=== PATIENT | male | born 1950 | race Caucasian/White ===

== ENCOUNTER → 2017-08-28 | Outpatient (CLI) | payer MEDICARE ==
[2017-08-28 10:03] LABS: Basophils % (A) 1 %; Eosinophils # (A) 0.1 k/uL (0-0.7); Eosinophils % (A) 2 %; HCT 48.3 % (39.0-53.0); HGB 15.8 gm/dL (13.0-17.5); Lymphocytes # (A) 1.4 k/uL (1.0-4.8); Lymphocytes % (A) 21 %; MCH 30.2 pg (25.0-35.0); MCHC 32.8 g/dL (31.0-37.0); MCV 92.2 fL (80.0-100.0); Monocytes # (A) 0.3 k/uL (0-1.0); Monocytes % (A) 5 %; Neutrophils # (A) 4.5 k/uL (1.3-7.7); Neutrophils % (A) 69 %; Platelet Count 191 k/uL (150-450); RBC 5.23 m/uL (4.30-5.90); RDW 13.8 % (11.5-15.5); WBC 6.6 k/uL (3.8-10.6)
[2017-08-28 10:44] LABS: Calcium 9.6 mg/dL (8.4-10.2); Potassium 4.8 mmol/L (3.5-5.1)
[2017-08-28 11:14] LABS: Prostate Specific Antigen 0.65 ng/mL (0.00-4.00)
== END | disposition home or self-care (01) ==
LOC: LABWHC1 09:25
PROVIDERS: ATTEND Internal Medicine
DX: Z00.00 Encounter for general adult medical examination without abnormal findings (principal); R35.1 Nocturia
CPT/HCPCS: 36415; 80048; 80061; 84153; 85025

== ENCOUNTER → 2018-05-10 | Outpatient (CLI) | payer MEDICARE ==
--- NOTE | 2018-05-10 09:04 | MR ---
EXAMINATION TYPE: MR knee LT wo con DATE OF EXAM: 05/10/2018 COMPARISON: None at this institution. HISTORY: Pain in left knee per order. Pain and swelling with history of ACL and MCL tears and surgery per patient. TECHNIQUE: Multiplanar, multisequence images of the knee is performed without IV contrast. FINDINGS: MEDIAL MENISCUS: Normal appearing medial meniscus is not identified, there is [id number] appearance , complete meniscectomy has likely been performed. Correlate clinically. LATERAL MENISCUS: Anterior and posterior horns are intact without tear. CRUCIATE LIGAMENTS: The posterior cruciate ligament is intact and unremarkable. Surgically repaired a nterior cruciate ligament remains intact COLLATERAL LIGAMENTS: The medial collateral ligament and lateral collateral ligament complex are inta ct and unremarkable. EXTENSOR MECHANISM: Visualized quadriceps and patellar tendons are intact. EFFUSION: No significant suprapatellar joint effusion. POPLITEAL CYST: No popliteal/lemos cyst. TRICOMPARTMENT SPACES: Moderate narrowing and mild to moderate spurring patellofemoral compartment is seen. Similar mild to moderate narrowing and moderate spurring medial and lateral tibiofemoral bebeto rtments is noted. CARTILAGE: There is thinning of articular cartilage medial tibiofemoral compartment. No significant c hondromalacia patella is present. BONE MARROW SIGNAL: Artifact from prior surgery over medial aspect proximal tibial metaphysis is note d. OTHER: No additional significant abnormality is appreciated. IMPRESSION: 1. Surgically repaired ACL is intact. Surgical change suggesting complete medial meniscectomy is note d, correlate clinically. 2. Fairly moderate tricompartment degenerative changes as detailed above most prominent medial tibiof emoral compartment.
== END | disposition home or self-care (01) ==
LOC: RADMRIMAIN 07:14
PROVIDERS: ATTEND Orthopaedic Surgery
DX: M17.12 Unilateral primary osteoarthritis, left knee (principal); Z98.890 Other specified postprocedural states

== ENCOUNTER → 2020-04-18 | Outpatient (CLI) | payer MEDICARE | END | disposition home or self-care (01) | LOC: LABPAT 14:01 | PROVIDERS: ATTEND Orthopaedic Surgery | DX: Z01.812 Encounter for preprocedural laboratory examination (principal) | CPT/HCPCS: 87070 ==

== ENCOUNTER 2020-05-09 05:40 | Day surgery (SDC) | payer MEDICARE ==
[2020-05-03 16:14] VITALS: BMI 27.6
--- NOTE | 2020-05-08 16:45 | HP ---
HISTORY AND PHYSICAL REASON FOR ADMISSION: Surgery scheduled for 05/09/2020 HISTORY OF PRESENT ILLNESS: Edin Burton is a 69-year-old gentleman seen with symptomatic left knee osteoarthritis. We discussed options for treatment. He elected to proceed with left total knee arthroplasty. Consent was obtained. Medical clearance was provided Dr. Denny Escalante. PAST MEDICAL HISTORY: Noncontributory. PAST SURGICAL HISTORY: Left knee arthroscopy. MEDICATIONS: Aspirin. ALLERGIES: SULFA. SOCIAL HISTORY: Denies tobacco use. PHYSICAL EXAMINATION: Evaluation of the left knee: Range of motion is -4/5-100. Tenderness along the medial joint line. Crepitus medial patellofemoral compartments with range of motion. Pain with patellofemoral compression. Ligaments stable. Hip rotation without pain. Distal neurovascular exam is intact. RADIOGRAPHS: Left knee radiographs reveal severe osteoarthritic changes. IMPRESSION: Left knee osteoarthritis. PLAN: Left total knee arthroplasty. Surgery is 05/09/2020. MMODL / IJN: [id number] /
[~2020-05-09 05:40] MED LIST: ACETAMINOPHEN TAB 500 MG TAB PO PRN; MELOXICAM 7.5 MG TAB PO PRN; ROPIVACAINE 246.25 MG, EPINEPHrine 0.5 MG, KETOROLAC 30 MG, cloNIDine HCL/PF 80 MCG, WA... MISCELLANE PRN; ROPIVACAINE/EPI/CLONIDINE/KET 50 ML SYRINGE MISCELLANE PRN; TRANEXAMIC ACID 1,000 MG in SODIUM CHLORIDE 0.9% 100 ML IVPB PRN
[2020-05-09] MEDS ORDERED: DEXAMETHASONE SOD PHOSPHATE 4 MG/ML 1 ML VIAL IV ONE (06:11)
[2020-05-09] MEDS ORDERED: MIDAZOLAM 2 MG/2 ML VIAL IV PRN (06:11)
[2020-05-09] MEDS ORDERED: ONDANSETRON 4 MG/2 ML VIAL IVP ONE ×2 (06:11→11:25)
[2020-05-09] MEDS ORDERED: LIDOCAINE 1% (10MG/ML) FOR IV START INTRADERMA PRN (06:11)
[2020-05-09] MEDS ORDERED: fentaNYL (PF) 50 MCG/ML 2 ML AMP IVP PRN (06:11)
[2020-05-09] MEDS ORDERED: LACTATED RINGERS 1,000 ML IV SCH (06:11)
[2020-05-09 06:29] VITALS: RESP 16
[2020-05-09] MEDS ORDERED: fentaNYL (PF) 50 MCG/ML 2 ML AMP IVP ONE ×2 (06:54→07:24)
[2020-05-09] MEDS ORDERED: MIDAZOLAM 2 MG/2 ML VIAL IVP ONE (07:24)
[2020-05-09] MEDS ORDERED: SODIUM CHLORIDE 0.9% 100 ML BAG ONE (07:30)
[2020-05-09] MEDS ORDERED: ROCURONIUM 10 MG/ML (10 ML VIAL) IV ONE (07:30)
[2020-05-09] MEDS ORDERED: TRANEXAMIC ACID 1,000 MG/10 ML VIAL ONE (07:30)
[2020-05-09] MEDS ORDERED: SUCCINYLCHOLINE CHLORIDE 100 MG/5 ML SYR IV ONE (07:30)
[2020-05-09] MEDS ORDERED: LIDOCAINE 1% INJ 10MG/ML (20 ML MDV) ONE (07:30)
[2020-05-09] MEDS ORDERED: PROPOFOL 10 MG/ML 20 ML VIAL IV ONE (07:30)
[2020-05-09] MEDS ORDERED: LACTATED RINGERS 1,000 ML IV ONE ×2 (08:35→09:41)
[2020-05-09] MEDS ORDERED: ROPIVACAINE 0.2%-NS ON-Q PUMP 1,090 MG, EMPTY PAIN BALL 1 EACH MISCELLANE PRN (09:02)
--- NOTE | 2020-05-09 09:06 | P.ANPRN ---
Procedure Note - Anesthesia - Nerve Block Performed Left Adductor Canal Time Out Performed: Yes (06:53) Date of Procedure: 05/09/20 Procedure Start Time: 53 Procedure Stop Time: :09 Location of Patient: PreOp Indication: Acute Post-Operative Pain, Requested by Surgeon Sedation Type: Sedate with meaningful contact maintained Preparation: Sterile Prep, Sterile Dressing Position: Supine Catheter: Indwelling Needle Types: Pajunk Needle Gauge: 21 Ultrasound used to visualize needle placement: Yes Ultrasound used to observe medication spread: Yes Injectate: 0.5% Ropivacaine (see comment for volume) (20cc) Blood Aspirated: No Pain Paresthesia on Injection Noted: No Resistance on Injection: Normal Image Stored and Saved: Yes Events: Uneventful and Well Tolerated
[2020-05-09] MEDS ORDERED: ONDANSETRON 4 MG/2 ML VIAL IVP PRN (09:41)
[2020-05-09] MEDS ORDERED: HYDROmorphone 0.5 MG/0.5 ML SYRINGE IVP PRN ×2 (09:41)
[2020-05-09] MEDS ORDERED: NALOXONE 0.4 MG/ML 1 ML VIAL IV PRN (09:41)
[2020-05-09] MEDS ORDERED: HYDROcodone/APAP 5-325MG 1 EACH TAB PO PRN (09:41)
[2020-05-09] MEDS ORDERED: HYDROcodone/APAP 7.5-325MG 1 EACH TAB PO PRN (09:41)
[2020-05-09] MEDS ORDERED: HYDROmorphone 0.2 MG/1 ML SYRINGE IVP PRN (09:41)
--- NOTE | 2020-05-09 09:41 | P.OP ---
Date of Procedure: 05/09/20 Preoperative Diagnosis: Left knee osteoarthritis Postoperative Diagnosis: Left knee osteoarthritis Procedure(s) Performed: Left total knee arthroplasty Implants: 1. Depuy attune size 6 left cruciate retaining cemented femur 2. Depuy attune size 5 fixed bearing cemented tibial baseplate 3. Depuy attune size 6 cruciate fixed bearing cruciate retaining 6 mm polythene tibial insert 4. Depuy attune 38 mm all polyethylene cemented patella Anesthesia: GETA, regional (Adductor canal catheter) Surgeon: Abhi Stapleton Estimated Blood Loss (ml): 45 Pathology: other (On) Condition: stable Disposition: PACU Indications for Procedure: 69-year-old patient seen with symptomatic left knee osteoarthritis. After treatment options were discussed, he elected to proceed with total knee arthroplasty. Operative Findings: See description of procedure Description of Procedure: Patient was taken to the operative suite after having an adductor canal catheter placed by the department of anesthesia. Patient underwent a general anesthetic by the department of anesthesia. Patient was given preoperative IV intake antibiotics and TXA. A well-padded tourniquet was placed about the left lower extremity. The lower extremity was then prepped and draped in the normal sterile orthopedic fashion. The extremity was elevated, a tourniquet was insufflated to 300. A standard anterior incision was made sharply through skin. Dissection was taken down through the subcutaneous soft tissues down to the extensor mechanism. A medial arthrotomy was performed, patella was everted and knee was flexed. There was advanced osteoarthritis noted. I introduced my distal intramedullary femoral drill. I then introduced the distal femoral cutting jig. Donis CHAVEZ secured the cutting jig with 2 pins. I held ret ractors in position while my blood bank assistant performed the distal femoral resection through the guide area we now removed her distal femoral cutting guide. We now placed our 4-in-1 femoral cutting block and positioned and it was secured with 2 pins by my blood bank assistant while I held the block in position. The distal femoral finishing was now completed. A proximal tibial cutting guide was positioned. I held the guide in the appropriate position with both hands well Donis CHAVEZ inserted stabilizing pins into the guide. Proximal tibial cut was made. We now placed a trial femoral component into position, along with an appropriate size tibial tray and insert. We now took the knee through range of motion and had full extension good flexion and good overall soft tissue balance noted. The patella was everted and stabilized with 2 towel clips held by my blood bank assistant while I performed a flush with patellar quad tendon utilizing a fresh sawblade. We templated the patella, appropriate drill holes were made. An appropriate trial patella was positioned, knee was taken through full range of motion with the patella tracking very nicely. The trial patella was removed. Drill holes were made through the femoral component. All trial components were removed after marking off the appropriate rotation of the tibia. Retractors were now positioned along the proximal tibia. An appropriate keel punch was made with the appropriate size tibial guide. At this point appropriate size implants were chosen and opened. The joint was irrigated copiously with pulse lavage mechanical irrigation. The posterior capsule was infiltrated with local analgesic. The wound was irrigated with pulse lavage mechanical irrigation. We mixed antibiotic methylmethacrylate. We placed the knee into flexion. We place d multiple retractors assisted by my blood bank assistant to expose the proximal tibia. Once the methyl methacrylate was ready, the tibial component was cemented into place removing any excess methylmethacrylate. The femoral component was cemented into place removing the removing any excess methylmethacrylate. We then inserted the appropriate size polyethylene tibial insert. We made sure that it was locked into position. We took the knee into full extension, and then back in a flexion making sure we had removed any excess methylmethacrylate. The patellar component was then cemented down and secured with clamp. Excess methylmethacrylate removed. We kept the knee in full extension, patellar clamp in position until methylmethacrylate had hardened. Once it had hardened the patellar clamp was removed. The knee was taken through full range of motion. The patella tracked nicely. There was good soft tissue balancing. The tourniquet was now released. Additional hemostasis was achieved via el ectrocautery. A second gram of TXA was given. The wound again was irrigated with pulse lavage mechanical irrigation. The superficial soft tissues were infiltrated local analgesic. The extensor mechanism was repaired with Vicryl. We checked the repair with range of motion and it was stable. The subcutaneous soft tissues were repaired with Vicryl in layers. The skin was approximated with pernio/Dermabond. Sterile dressings were applied followed by loose web roll and Chaz bandage. The patient was transferred to a bed, and taken to recovery in stable and satisfactory condition.
[2020-05-09 10:01] VITALS: TEMP 97
[2020-05-09] MEDS: HYDROmorphone 0.5 MG/0.5 ML SYRINGE IVP PRN ×2 (10:04→10:20)
--- NOTE | 2020-05-09 10:54 | XR ---
EXAMINATION TYPE: XR knee limited LT DATE OF EXAM: 05/09/2020 CLINICAL HISTORY: Postoperative evaluation Two views of the left knee are submitted. Identified are changes of total knee arthroplasty with fem oral and tibial components appearing well seated. Postsurgical soft tissue changes are noted. Align ment is anatomic.
[2020-05-09 14:02] VITALS: BP 128/77; PULSE 57
== END 2020-05-09 14:40 | disposition home health service (06) ==
LOC: OR 05:40
PROVIDERS: ATTEND Orthopaedic Surgery
DX: M17.12 Unilateral primary osteoarthritis, left knee (principal); Z88.2 Allergy status to sulfonamides; Z79.82 Long term (current) use of aspirin
CPT/HCPCS: 97110; 97161; 64448; 76942; 88300; 73560; 27447; C1776; C1713; J2250; J1100; J0690; J2405; J2001; J3010; J0330; J2704; J1170; J2795

== ENCOUNTER → 2020-08-08 | Day surgery (SDC) | payer MEDICARE ==
[2020-08-03 13:04] VITALS: BMI 28.1
--- NOTE | 2020-08-07 12:06 | HP ---
HISTORY AND PHYSICAL REASON FOR ADMISSION: Surgery scheduled 08/08/2020 HISTORY OF PRESENT ILLNESS: Edin Burton is a 70-year-old gentleman seen with left knee adhesions with history of previous total knee arthroplasty. We discussed options. I discussed manipulation under anesthesia, left knee with steroid injection and he is agreeable. Consent was obtained. PAST MEDICAL HISTORY: Noncontributory. SURGICAL HISTORY: Left knee arthroscopy, left total knee arthroplasty. MEDICATIONS: Tekoa. ALLERGIES: SULFA. SOCIAL HISTORY: Denies tobacco use. PHYSICAL EXAMINATION: Evaluation of the left knee: He has a well-healed incision. His range of motion is -12 to 100. He has some weakness with quadriceps strength. Homans and Dhruv are negative. His distal neurovascular exam is intact. RADIOGRAPHS: Radiographs of the left knee reveal stable appearing total knee arthroplasty. IMPRESSION: 1. Left knee adhesions. 2. History of left total knee arthroplasty. PLAN: Manipulation under anesthesia left knee with steroid injection. Surgery 08/08/2020. MMODL / IJN: [id number] /
[~2020-08-08] MED LIST changes: -ACETAMINOPHEN TAB 500 MG TAB PO PRN; +DEXAMETHASONE SOD PHOSPHATE 4 MG/ML 1 ML VIAL IVP ONE; +HYDROmorphone 0.5 MG/0.5 ML SYRINGE IVP ONE; +HYDROmorphone 0.5 MG/0.5 ML SYRINGE SQ ONE; +KETOROLAC 15 MG/ML 1 ML VIAL IVP ONE; +LACTATED RINGERS 1,000 ML IV SCH; +LIDOCAINE 1% (10MG/ML) FOR IV START INTRADERMA PRN; -MELOXICAM 7.5 MG TAB PO PRN; +ONDANSETRON 4 MG/2 ML VIAL ONE; +PROPOFOL 10 MG/ML 20 ML VIAL IV ONE; +Pre Op ABX Message 1 EACH MISC MISCELLANE ONE; -ROPIVACAINE 246.25 MG, EPINEPHrine 0.5 MG, KETOROLAC 30 MG, cloNIDine HCL/PF 80 MCG, WA... MISCELLANE PRN; -ROPIVACAINE/EPI/CLONIDINE/KET 50 ML SYRINGE MISCELLANE PRN; -TRANEXAMIC ACID 1,000 MG in SODIUM CHLORIDE 0.9% 100 ML IVPB PRN; +ceFAZolin 1,000 MG VIAL IVPB ONE
[2020-08-08 08:59] VITALS: TEMP 97.8
--- NOTE | 2020-08-08 09:47 | P.OP ---
Date of Procedure: 08/08/20 Preoperative Diagnosis: Left knee adhesions Postoperative Diagnosis: Left knee adhesions Procedure(s) Performed: Manipulation under anesthesia left knee with steroid injection Anesthesia: MAC, local Surgeon: Abhi Stapleton Estimated Blood Loss (ml): 0 Pathology: none sent Condition: stable Disposition: PACU Indications for Procedure: 70-year-old patient seen with persistent left knee adhesions with history of previous total knee arthroplasty. After discussing treatment options he elected to proceed with manipulation under anesthesia left knee with steroid injection. Operative Findings: See description of procedure Description of Procedure: Patient was taken to a monitored anesthesia area. The patient received IV sedation by the department of anesthesia. Once sufficient anesthesia was noted I performed a manipulation of the left knee achieving full extension and 145 of flexion with audible tearing of the adhesions. The superior lateral aspect of the knee was prepped and draped in the normal sterile orthopedic fashion. I injected a solution of 1 mL Depo-Medrol and 3 mL quarter percent plain Marcaine intra-articular left knee under sterile technique. A sterile Band-Aid was applied. I again took the knee through range of motion. The patient was now awakened having tolerated procedure well.
[2020-08-08 10:08] VITALS: RESP 16
[2020-08-08 11:31] VITALS: BP 144/77; PULSE 62
== END | disposition home or self-care (01) ==
LOC: OR 08:25
PROVIDERS: ATTEND Orthopaedic Surgery
DX: M23.8X2 Other internal derangements of left knee (principal); Z96.652 Presence of left artificial knee joint; K21.9 Gastro-esophageal reflux disease without esophagitis; Z98.890 Other specified postprocedural states; Z79.891 Long term (current) use of opiate analgesic; Z88.2 Allergy status to sulfonamides
CPT/HCPCS: 27570; 20610; J1100; J2405; J0690; J1885; J2704; J1170

== ENCOUNTER 2022-04-22 08:57 | Emergency (ER) | payer MEDICARE ==
[2022-04-22] MEDS ORDERED: ONDANSETRON 4 MG/2 ML VIAL IVP STA (09:26)
[2022-04-22] MEDS ORDERED: SODIUM CHLORIDE 0.9% 1,000 ML IV STA (09:26)
[2022-04-22] MEDS ORDERED: PANTOPRAZOLE 40 MG/10 ML VIAL IVP STA (09:26)
[2022-04-22] MEDS ORDERED: MORPHINE SULFATE 2 MG/ML SYRINGE IVP STA ×2 (09:27→10:26)
--- NOTE | 2022-04-22 09:37 | ED ---
General Adult HPI - General Chief complaint: Abdominal Pain Stated complaint: Abd Pain Time Seen by Provider: 04/22/22 09:16 Source: patient, RN notes reviewed, old records reviewed Mode of arrival: ambulatory Limitations: no limitations - History of Present Illness Initial comments: Patient is a 71-year-old male with past medical history remarkable for orthopedic surgery in the left lower extremity who presents with acute onset nonspecific abdominal pain with nonbilious nonbloody emesis since 3 AM this morning. He states this only started this morning at 3 AM. Has not improved. States he had a loose bowel movement yesterday which is somewhat typical for him. Denies constipation or blood in his stool. Denies any blood in his emesis. Denies any chest pain or shortness of breath. No cardiac history. No intra-abdominal surgeries. Denies any urinary complaints. Denies any constipation. Describes the pain as an achy sensation and points to his stomach but has a difficult time this coming exactly where the pain is at. Presents for further evaluation at this time. - Related Data Previous Rx's Medication Instructions Recorded HYDROcodone/APAP 5-325MG [Jackson 1 tab PO Q6HR PRN 3 Days #12 tab 04/22/22 5-325] Ondansetron Odt [Zofran Odt] 4 mg PO Q8HR PRN 3 Days #9 tab 04/22/22 Pantoprazole Sodium [Protonix] 20 mg PO DAILY 7 Days #7 tab 04/22/22 Allergies Allergy/AdvReac Type Severity Reaction Status Date / Time Sulfa (Sulfonamide Allergy Rash/Hives Verified 04/22/22 12:25 Antibiotics) Review of Systems ROS Statement: Those systems with pertinent positive or pertinent negative responses have been documented in the HPI. Review of Systems: CONST: Denies fever EYES: Denies blurry vision ENT: Denies nasal congestion C/V: Denies Chest pain RESP: Denies shortness of breath GI: Endorses abdominal pain : Denies dysuria SKIN: Denies rash. MSK: Denies joint pain. NEURO: Denies headache ROS Other: All systems not noted in ROS Statement are negative. Past Medical History Past Medical History: Osteoarthritis (OA) History of Any Multi-Drug Resistant Organisms: None Reported Past Surgical History: Orthopedic Surgery Additional Past Surgical History / Comment(s): left knee surgeries Past Anesthesia/Blood Transfusion Reactions: No Reported Reaction Past Psychological History: No Psychological Hx Reported Smoking Status: Never smoker Past Alcohol Use History: Occasional Past Drug Use History: None Reported - Past Family History Father Family Medical History: Cancer General Exam - General Exam Comments Initial Comments: General: Appears in no acute distress. HEAD: Normal with no signs of head trauma. EYES: PERRLA, EOMI, conjunctiva normal, no discharge. ENT: Hearing grossly intact, normal oropharynx. RESPIRATORY: Clear breath sounds bilaterally. No wheezes, rales, or rhonchi. C/V: Regular rate and rhythm. S1 and S2 auscultated, no edema, peripheral pu lses 2+ and intact throughout ABD: Abd is soft, nontender, nondistended. No guarding. No rebound tenderness. No peritoneal signs. I cannot re-create the patient's abdominal pain on palpation. EXT: Normal range of motion, no obvious deformity SKIN: No rashes or lesions observed on exposed skin. NEURO: Alert and oriented 4. Limitations: no limitations Course Vital Signs 04/22/22 04/22/22 04/22/22 09:05 11:38 14:32 Temperature 98.4 F 98.5 F Pulse Rate 50 L 53 L 56 L Respiratory 20 18 17 Rate Blood Pressure 146/93 131/98 164/69 O2 Sat by Pulse 99 98 96 Oximetry Medical Decision Making - Medical Decision Making Based on the patient's presentation and physical exam, and concern for acute intrapelvic process the patient's current complaints at this time. Cannot rule out cardiac etiology either as an atypical ACS presentation. Therefore we'll obtain screening EKG, troponin addition to abdominal laboratory studies. Ultimately will likely obtain a CT abdomen and pelvis as well but would like to evaluate lactic acid initially. Vital signs are within acceptable limits. Patient's chronic bradycardia. He'll be symptomatically treated with IV morphine, Zofran, Protonix as well as IV fluids. He was in agreement with this plan. EKG showed sinus bradycardia with no signs of acute ischemia. This is chronic finding.Chest x-ray showed no acute cardio pulmonary process. CT of the abdomen and pelvis revealed clearly lithiasis with no other acute process. Gallbladder ultrasound was obtained and revealed cholelithiasis without evidence of cholecystitis. Normal sized CBD for the patient's age. Laboratory studies were remarkable for a slight leukocytosis of 10.8 which could be reactive. Patient has what appears to be CK D with an elevated creatinine of 1.3 which is chronic. Cardiac workup is unremarkable. Urinalysis shows 1+ ketones. Patient's Covid, flu, RSV negative. Lactic acid within normal limits. On reevaluation, patient is tolerating oral intake. We discussed his workup. He is cholelithiasis which could mean he was expressing biliary colic with his pain which is currently under control. However it is difficult to definitively say this. He does not have evidence of acute infection or cholecystitis. He is tolerating oral intake at this time. I do believe it is safe for him to be discharged home with follow-up with his PCP. I'll also provide him with contact info for a surgeon as well as GI. He was in agreement this plan. There was a delay in obtaining imaging due to demand for the computed tomography scan and ultrasound. I will provide the patient with a prescription for Jackson, Zofran, Protonix. I instructed the patient to follow up with their PCP in the next 1-3 days. I provided contact information for follow up with GI, Gen. surgery. I explained that the patient should return to the emergency department if they experience any worsening symptoms. Strict return precautions were discussed with the patient. The patient expressed understanding of these instructions. I answered all questions that the patient had. The patient was discharged home in good condition with their prescriptions and follow up information. Was pt. sent in by a medical professional or institution ([facility], [facility], urgent care, hospital, or shelter...) When possible be specific @ -No Did you speak to anyone other than the patient for history (EMS, parent, family, police, friend...)? What history was obtained from this source @ -No Did you review nursing and triage notes (agree or disagree)? Why? @ -I reviewed and agree with nursing and triage notes Were old charts reviewed (outside hosp., previous admission, EMS record, old EKG, old radiological studies, urgent care reports/EKG's, shelter records)? Report findings @ -Yes, prior visits were reviewed. Differential Diagnosis (chest pain, altered mental status, abdominal pain women, abdominal pain men, vaginal bleeding, weakness, fever, dyspnea, syncope, headache, dizziness, GI bleed, back pain, seizure, CVA, palpatations, mental health)? @ -Differential Abdominal Pain Men: Appendicitis, cholecystitis, diverticulosis, ischemic bowel, pancreatitis, hepatitis, UTI, gastroenteritis, AAA, incarcerated hernia, bowel obstruction, constipation, inflammatory bowel, hepatitis, peptic ulcer disease, splenic infarction, perforated viscus, testicular torsion, this is not meant to be an all-inclusive list EKG interpreted by me (3pts min.). @ -As above X-rays interpreted by me (1pt min.). @ -Chest x-ray showed no acute cardio pulmonary process CT interpreted by me (1pt min.). @ -CT abd pelvis revealed cholelithiasis with no other acute process. U/S interpreted by me (1pt. min.). @ -GALLBLADDER US REVEALED CHOLELITHIASIS WITH NO EVIDENCE OF CHOLECYSTITIS. What testing was considered but not performed or refused? (CT, X-rays, U/S, labs)? Why? @ -None What meds were considered but not given or refused? Why? @ -None Did you discuss the management of the patient with other professionals (professionals i.e. , PA, [facility], lab, RT, psych nurse, social and human services assistant, systems consultant, teacher, training and development officer, onsite case manager)? Give summary @ -No Was smoking cessation discussed for >3mins.? @ -No Was critical care preformed (if so, how long)? @ -No Were there social determinants of health that impacted care today? How? (Homelessness, low income, unemployed, alcoholism, drug addiction, transportation, low edu. Level, literacy, decrease access to med. care, long term, rehab)? @ -No Was there de-escalation of care discussed even if they declined (Discuss DNR or withdrawal of care, Hospice)? DNR status @ -No What co-morbidities impacted this encounter? (DM, HTN, Smoking, COPD, CAD, Cancer, CVA, ARF, Chemo, Hep., AIDS, mental health diagnosis, sleep apnea, morbid obesity)? @ -None Was patient admitted / discharged? Hospital course, mention meds given and route, prescriptions, significant lab abnormalities, going to OR and other pertinent info. @ -Discharged home. See above for ED course. Undiagnosed new problem with uncertain prognosis? @ -No Drug Therapy requiring intensive monitoring for toxicity (Heparin, Nitro, Insulin, Cardizem)? @ -No Were any procedures done? @ -No Diagnosis/symptom? @ -Abdominal pain of unknown etiology Acute, or Chronic, or Acute on Chronic? @ -Acute Uncomplicated (without systemic symptoms) or Complicated (systemic symptoms)? @ -Uncomplicated Side effects of treatment? @ -No Exacerbation, Progression, or Severe Exacerbation? @ -No Poses a threat to life or bodily function? How? (Chest pain, [place], NC, pneumonia, PE, COPD, DKA, ARF, appy, cholecystitis, CVA, Diverticulitis, Homicidal, Suicidal, threat to staff... and all critical care pts) @ -No Diagnosis/symptom? @ -Nausea and vomiting Acute, or Chronic, or Acute on Chronic? @ -Acute Uncomplicated (without systemic symptoms) or Complicated (systemic symptoms)? @ -Uncomplicated Side effects of treatment? @ -none Exacerbation, Progression, or Severe Exacerbation] @ -no Poses a threat to life or bodily function? @ -no Diagnosis/symptom? @ -Cholelithiasis and possible biliary colic Acute, or Chronic, or Acute on Chronic? @ -Acute Uncomplicated (without systemic symptoms) or Complicated (systemic symptoms)? @ -Uncomplicated Side effects of treatment? @ -none Exacerbation, Progression, or Severe Exacerbation] @ -no Poses a threat to life or bodily function? @ -no Diagnosis/symptom? @ -Chronic kidney disease Acute, or Chronic, or Acute on Chronic? @ -Chronic Uncomplicated (without systemic symptoms) or Complicated (systemic symptoms)? @ -Uncomplicated Side effects of treatment? @ -none Exacerbation, Progression, or Severe Exacerbation] @ -no Poses a threat to life or bodily function? @ -no - Lab Data Result diagrams: 04/22/22 11:20 04/22/22 09:47 Lab Results 04/22/22 04/22/22 04/22/22 Range/Units 09:47 09:47 09:47 WBC (3.8-10.6) k/uL RBC (4.30-5.90) m/uL Hgb (13.0-17.5) gm/dL Hct (39.0-53.0) % MCV (80.0-100.0) fL MCH (25.0-35.0) pg MCHC (31.0-37.0) g/dL RDW (11.5-15.5) % Plt Count (150-450) k/uL MPV Neutrophils % % Lymphocytes % % Monocytes % % Eosinophils % % Basophils % % Neutrophils # (1.3-7.7) k/uL Lymphocytes # (1.0-4.8) k/uL Monocytes # (0-1.0) k/uL Eosinophils # (0-0.7) k/uL Basophils # (0-0.2) k/uL PT 10.0 (9.0-12.0) sec INR 0.9 (<1.2) APTT 22.1 (22.0-30.0) sec Sodium 143 (137-145) mmol/L Potassium 4.8 (3.5-5.1) mmol/L Chloride 108 H (98-107) mmol/L Carbon Dioxide 28 (22-30) mmol/L Anion Gap 7 mmol/L BUN 18 (9-20) mg/dL Creatinine 1.30 H (0.66-1.25) mg/dL Est GFR (CKD-EPI)AfAm 63 (>60 ml/min/1.73 sqM) Est GFR (CKD-EPI)NonAf 55 (>60 ml/min/1.73 sqM) Glucose 140 H (74-99) mg/dL Plasma Lactic Acid Deejay 1.9 (0.7-2.0) mmol/L Calcium 9.3 (8.4-10.2) mg/dL Total Bilirubin 0.7 (0.2-1.3) mg/dL AST 38 (17-59) U/L ALT 27 (4-49) U/L Alkaline Phosphatase 96 (38-126) U/L Troponin I (0.000-0.034) ng/mL Total Protein 8.0 (6.3-8.2) g/dL Albumin 4.9 (3.5-5.0) g/dL Amylase 88 (30-110) U/L Lipase 89 (23-300) U/L Urine Color Urine Appearance (Clear) Urine pH (5.0-8.0) Ur Specific [place] (1.001-1.035) Urine Protein (Negative) Urine Glucose (UA) (Negative) Urine Ketones (Negative) Urine Blood (Negative) Urine Nitrite (Negative) Urine Bilirubin (Negative) Urine Urobilinogen (<2.0) mg/dL Ur Leukocyte Esterase (Negative) Urine RBC (0-5) /hpf Urine WBC (0-5) /hpf Amorphous Sediment (None) /hpf Urine Mucus (None) /hpf Influenza Type A (PCR) (Not Detectd) Influenza Type B (PCR) (Not Detectd) RSV (PCR) (Not Detectd) SARS-CoV-2 (PCR) (Not Detectd) Blood Type Blood Type Confirm Blood Type Recheck Bld Type Recheck Status Antibody Screen Spec Expiration Date 04/22/22 04/22/22 04/22/22 Range/Units 09:47 09:47 09:47 WBC (3.8-10.6) k/uL RBC (4.30-5.90) m/uL Hgb (13.0-17.5) gm/dL Hct (39.0-53.0) % MCV (80.0-100.0) fL MCH (25.0-35.0) pg MCHC (31.0-37.0) g/dL RDW (11.5-15.5) % Plt Count (150-450) k/uL MPV Neutrophils % % Lymphocytes % % Monocytes % % Eosinophils % % Basophils % % Neutrophils # (1.3-7.7) k/uL Lymphocytes # (1.0-4.8) k/uL Monocytes # (0-1.0) k/uL Eosinophils # (0-0.7) k/uL Basophils # (0-0.2) k/uL PT (9.0-12.0) sec INR (<1.2) APTT (22.0-30.0) sec Sodium (137-145) mmol/L Potassium (3.5-5.1) mmol/L Chloride (98-107) mmol/L Carbon Dioxide (22-30) mmol/L Anion Gap mmol/L BUN (9-20) mg/dL Creatinine (0.66-1.25) mg/dL Est GFR (CKD-EPI)AfAm (>60 ml/min/1.73 sqM) Est GFR (CKD-EPI)NonAf (>60 ml/min/1.73 sqM) Glucose (74-99) mg/dL Plasma Lactic Acid Deejay (0.7-2.0) mmol/L Calcium (8.4-10.2) mg/dL Total Bilirubin (0.2-1.3) mg/dL AST (17-59) U/L ALT (4-49) U/L Alkaline Phosphatase (38-126) U/L Troponin I 0.012 (0.000-0.034) ng/mL Total Protein (6.3-8.2) g/dL Albumin (3.5-5.0) g/dL Amylase (30-110) U/L Lipase (23-300) U/L Urine Color Yellow Urine Appearance Cloudy (Clear) Urine pH 8.5 H (5.0-8.0) Ur Specific [place] 1.020 (1.001-1.035) Urine Protein 1+ H (Negative) Urine Glucose (UA) Negative (Negative) Urine Ketones 1+ H (Negative) Urine Blood Negative (Negative) Urine Nitrite Negative (Negative) Urine Bilirubin Negative (Negative) Urine Urobilinogen <2.0 (<2.0) mg/dL Ur Leukocyte Esterase Negative (Negative) Urine RBC 4 (0-5) /hpf Urine WBC 1 (0-5) /hpf Amorphous Sediment Few H (None) /hpf Urine Mucus Rare H (None) /hpf Influenza Type A (PCR) Not Detected (Not Detectd) Influenza Type B (PCR) Not Detected (Not Detectd) RSV (PCR) Not Detected (Not Detectd) SARS-CoV-2 (PCR) Not Detected (Not Detectd) Blood Type Blood Type Confirm Blood Type Recheck Bld Type Recheck Status Antibody Screen Spec Expiration Date 04/22/22 04/22/22 04/22/22 Range/Units 11:10 11:15 11:20 WBC (3.8-10.6) k/uL RBC (4.30-5.90) m/uL Hgb (13.0-17.5) gm/dL Hct (39.0-53.0) % MCV (80.0-100.0) fL MCH (25.0-35.0) pg MCHC (31.0-37.0) g/dL RDW (11.5-15.5) % Plt Count (150-450) k/uL MPV Neutrophils % % Lymphocytes % % Monocytes % % Eosinophils % % Basophils % % Neutrophils # (1.3-7.7) k/uL Lymphocytes # (1.0-4.8) k/uL Monocytes # (0-1.0) k/uL Eosinophils # (0-0.7) k/uL Basophils # (0-0.2) k/uL PT (9.0-12.0) sec INR (<1.2) APTT (22.0-30.0) sec Sodium (137-145) mmol/L Potassium (3.5-5.1) mmol/L Chloride (98-107) mmol/L Carbon Dioxide (22-30) mmol/L Anion Gap mmol/L BUN (9-20) mg/dL Creatinine (0.66-1.25) mg/dL Est GFR (CKD-EPI)AfAm (>60 ml/min/1.73 sqM) Est GFR (CKD-EPI)NonAf (>60 ml/min/1.73 sqM) Glucose (74-99) mg/dL Plasma Lactic Acid Deejay (0.7-2.0) mmol/L Calcium (8.4-10.2) mg/dL Total Bilirubin (0.2-1.3) mg/dL AST (17-59) U/L ALT (4-49) U/L Alkaline Phosphatase (38-126) U/L Troponin I (0.000-0.034) ng/mL Total Protein (6.3-8.2) g/dL Albumin (3.5-5.0) g/dL Amylase (30-110) U/L Lipase (23-300) U/L Urine Color Urine Appearance (Clear) Urine pH (5.0-8.0) Ur Specific [place] (1.001-1.035) Urine Protein (Negative) Urine Glucose (UA) (Negative) Urine Ketones (Negative) Urine Blood (Negative) Urine Nitrite (Negative) Urine Bilirubin (Negative) Urine Urobilinogen (<2.0) mg/dL Ur Leukocyte Esterase (Negative) Urine RBC (0-5) /hpf Urine WBC (0-5) /hpf Amorphous Sediment (None) /hpf Urine Mucus (None) /hpf Influenza Type A (PCR) (Not Detectd) Influenza Type B (PCR) (Not Detectd) RSV (PCR) (Not Detectd) SARS-CoV-2 (PCR) (Not Detectd) Blood Type O Positive Blood Type Confirm O Positive Blood Type Recheck No Previous Record Bld Type Recheck Status CABO Indicated Antibody Screen NEGATIVE Spec Expiration Date 04/25/2022 - 231904/22/22 Range/Units 11:20 WBC 10.8 H (3.8-10.6) k/uL RBC 5.07 (4.30-5.90) m/uL Hgb 15.3 (13.0-17.5) gm/dL Hct 46.6 (39.0-53.0) % MCV 92.0 (80.0-100.0) fL MCH 30.1 (25.0-35.0) pg MCHC 32.8 (31.0-37.0) g/dL RDW 13.5 (11.5-15.5) % Plt Count 174 (150-450) k/uL MPV 7.5 Neutrophils % 93 % Lymphocytes % 5 % Monocytes % 2 % Eosinophils % 0 % Basophils % 0 % Neutrophils # 10.0 H (1.3-7.7) k/uL Lymphocytes # 0.5 L (1.0-4.8) k/uL Monocytes # 0.2 (0-1.0) k/uL Eosinophils # 0.0 (0-0.7) k/uL Basophils # 0.0 (0-0.2) k/uL PT (9.0-12.0) sec INR (<1.2) APTT (22.0-30.0) sec Sodium (137-145) mmol/L Potassium (3.5-5.1) mmol/L Chloride (98-107) mmol/L Carbon Dioxide (22-30) mmol/L Anion Gap mmol/L BUN (9-20) mg/dL Creatinine (0.66-1.25) mg/dL Est GFR (CKD-EPI)AfAm (>60 ml/min/1.73 sqM) Est GFR (CKD-EPI)NonAf (>60 ml/min/1.73 sqM) Glucose (74-99) mg/dL Plasma Lactic Acid Deejay (0.7-2.0) mmol/L Calcium (8.4-10.2) mg/dL Total Bilirubin (0.2-1.3) mg/dL AST (17-59) U/L ALT (4-49) U/L Alkaline Phosphatase (38-126) U/L Troponin I (0.000-0.034) ng/mL Total Protein (6.3-8.2) g/dL Albumin (3.5-5.0) g/dL Amylase (30-110) U/L Lipase (23-300) U/L Urine Color Urine Appearance (Clear) Urine pH (5.0-8.0) Ur Specific [place] (1.001-1.035) Urine Protein (Negative) Urine Glucose (UA) (Negative) Urine Ketones (Negative) Urine Blood (Negative) Urine Nitrite (Negative) Urine Bilirubin (Negative) Urine Urobilinogen (<2.0) mg/dL Ur Leukocyte Esterase (Negative) Urine RBC (0-5) /hpf Urine WBC (0-5) /hpf Amorphous Sediment (None) /hpf Urine Mucus (None) /hpf Influenza Type A (PCR) (Not Detectd) Influenza Type B (PCR) (Not Detectd) RSV (PCR) (Not Detectd) SARS-CoV-2 (PCR) (Not Detectd) Blood Type Blood Type Confirm Blood Type Recheck Bld Type Recheck Status Antibody Screen Spec Expiration Date - EKG Data -: EKG Interpreted by Me EKG Comments: 12-lead Electrocardiogram Interpretation Note EKG was reviewed and interpreted by myself. 12-lead ECG performed at 0929 is interpreted by me as revealing sinus bradycardia at a rate of 48 beats per minute. [place] is normal. MA interval is 130 ms, QRS duration is 109 ms, QTc is 456 ms.. There were no ST or T wave abnormalities to suggest myocardial ischemia or injury. R wave progression across the precordium was satisfactory. By my interpretation this EKG is non-diagnostic for acute ischemia. No prior EKG in her system for comparison. Patient does have prior EKG tracings which do show sinus bradycardia from 2020. Disposition Clinical Impression: Cholelithiasis, Nausea and vomiting, Abdominal pain of unknown cause, CKD (chronic kidney disease), Biliary colic Disposition: HOME SELF-CARE Condition: Good Instructions (If sedation given, give patient instructions): Biliary Colic (ED), Abdominal Pain (ED) Prescriptions: HYDROcodone/APAP 5-325MG [Jackson 5-325] 1 tab PO Q6HR PRN 3 Days #12 tab PRN Reason: Pain Pantoprazole Sodium [Protonix] 20 mg PO DAILY 7 Days #7 tab Ondansetron Odt [Zofran Odt] 4 mg PO Q8HR PRN 3 Days #9 tab PRN Reason: Nausea Is patient prescribed a controlled substance at d/c from ED?: No Referrals: Denny Escalante MD [Primary Care Provider] - 1-2 days Carmina Mcduffie MD [STAFF PHYSICIAN] - 1-2 days Wagner Jenkins MD [STAFF PHYSICIAN] - 1-2 days Time of Disposition: 13:55
[2022-04-22 10:14] LABS: Albumin 4.9 g/dL (3.5-5.0); Calcium 9.3 mg/dL (8.4-10.2); Total Bilirubin 0.7 mg/dL (0.2-1.3)
[2022-04-22 10:30] LABS: Amorphous Sediment,Urine Few /hpf; Appearance,Urine Cloudy (Clear); Bilirubin,Urine Negative (Negative); Blood,Urine Negative (Negative); Color,Urine Yellow; Glucose,Urine (UA) Negative (Negative); Ketones,Urine 1+ (Negative); Leukocyte Esterase,Urine Negative (Negative); Mucus,Urine Rare /hpf; Nitrite,Urine Negative (Negative); PH, Urine 8.5 (5.0-8.0); Protein,Urine 1+ (Negative); RBC,Urine 4 /hpf (0-5); Urobilinogen,Urine <2.0 mg/dL (<2.0); WBC,Urine 1 /hpf (0-5)
[2022-04-22 10:35] LABS: INR 0.9 (<1.2); Partial Thromboplastin Time 22.1 sec (22.0-30.0)
--- NOTE | 2022-04-22 10:38 | XR ---
EXAMINATION TYPE: XR chest 2V DATE OF EXAM: 04/22/2022 10:22 AM COMPARISON: None TECHNIQUE: XR chest 2V Frontal and lateral views of the chest. CLINICAL INDICATION:Male, 71 years old with history of abdominal pain; FINDINGS: Lungs/Pleura: There is no evidence of pleural effusion, focal consolidation, or pneumothorax. Pulmonary vascularity: Unremarkable. Heart/mediastinum: Cardiomediastinal silhouette is unremarkable. Musculoskeletal: No acute osseous pathology. IMPRESSION: No acute cardiopulmonary disease/process.
[2022-04-22 10:48] LABS: Potassium 4.8 mmol/L (3.5-5.1)
[2022-04-22 11:40] LABS: Basophils % (A) 0 %; Eosinophils % (A) 0 %; HCT 46.6 % (39.0-53.0); HGB 15.3 gm/dL (13.0-17.5); Lymphocytes # (A) 0.5 k/uL (1.0-4.8); Lymphocytes % (A) 5 %; MCH 30.1 pg (25.0-35.0); MCHC 32.8 g/dL (31.0-37.0); Mean Platelet Volume 7.5; Monocytes # (A) 0.2 k/uL (0-1.0); Monocytes % (A) 2 %; Neutrophils % (A) 93 %; Platelet Count 174 k/uL (150-450); RBC 5.07 m/uL (4.30-5.90); RDW 13.5 % (11.5-15.5); WBC 10.8 k/uL (3.8-10.6)
--- NOTE | 2022-04-22 11:51 | CT ---
EXAMINATION TYPE: CT abdomen pelvis w con CT DLP: 1028.8 mGycm, Automated exposure control for dose reduction was used. DATE OF EXAM: 04/22/2022 11:31 AM COMPARISON: None CLINICAL INDICATION:Male, 71 years old with history of abd pain, vomiting, acute, nonlocalized; Upper abdominal pain with vomiting TECHNIQUE: Axial CT of the abdomen and pelvis. Sagittal and coronal reformats were created on a [employer] workstation. Contrast used:80 mL of Isovue 300 with IV Contrast, Oral contrast used: without Oral Contrast FINDINGS: LOWER CHEST: Unremarkable ABDOMEN LIVER: Diffusely hypoattenuating parenchyma. GALLBLADDER AND BILE DUCTS: Large calcified gallstone in the gallbladder neck. PANCREAS: Unremarkable. SPLEEN: Unremarkable. ADRENAL GLANDS: Unremarkable. KIDNEYS AND URETERS: No evidence of hydronephrosis or renal calculus. Left renal cysts. PELVIS BLADDER: Unremarkable REPRODUCTIVE: Unremarkable. ABDOMEN & PELVIS STOMACH AND BOWEL: No evidence of bowel obstruction. Scattered clonic diverticula. PERITONEUM/RETROPERITONEUM: No evidence of pneumoperitoneum or free fluid. . VASCULATURE: No evidence of aortic aneurysm. MUSCULOSKELETAL: No acute osseous abnormalities LYMPH NODES: No gross evidence for lymphadenopathy. SOFT TISSUE/ABDOMINAL WALL: Unremarkable IMPRESSION: 1. No acute abdominal process. 2. Cholelithiasis. 3. Hepatic steatosis.
--- NOTE | 2022-04-22 13:03 | US ---
EXAMINATION TYPE: US gallbladder DATE OF EXAM: 04/22/2022 COMPARISON: NONE CLINICAL HISTORY: abd pain, vomiting. pain TECHNIQUE: Multiple sonographic images of the right upper quadrant are obtained. FINDINGS: EXAM MEASUREMENTS: Liver Length: 15.6 cm Gallbladder Wall: .3 cm CBD: .7 cm Right Kidney: 10 x 4.4 x 3.9 cm ELECTRIC METER READER NOTES: Pancreas: Obscured by bowel gas Liver: Increased attenuation Gallbladder: Stone visualized in gallbladder neck. Evidence for sonographic Mari's sign: No CBD: upper limits. Right Kidney: wnl IMPRESSION: 1. No acute abdominal process. 2. Cholelithiasis. 3. Hepatic steatosis.
[2022-04-22] MEDS ORDERED: HYDROcodone/APAP 5-325MG 1 EACH TAB PO STA (13:59)
[2022-04-22 14:33] VITALS: BP 164/69; PULSE 56; RESP 17; TEMP 98.5
== END 2022-04-22 14:33 | disposition home or self-care (01) ==
LOC: EC 08:57
DX: K80.20 Calculus of gallbladder without cholecystitis without obstruction (principal); K80.50 Calculus of bile duct without cholangitis or cholecystitis without obstruction; N18.9 Chronic kidney disease, unspecified; Z88.1 Allergy status to other antibiotic agents; Z88.2 Allergy status to sulfonamides; Z20.822 Contact with and (suspected) exposure to COVID-19
CPT/HCPCS: 36415; 93005; 86900; 86901; 80053; 82150; 83605; 83690; 84484; 85025; 85610; 85730; 86850; 81001; 87636; 71046; 76705; 74177; 99285; 96374; 96376; 96375 ×2; 96361 ×5; J2405; J2270; C9113; Q9967

== ENCOUNTER → 2022-11-05 | Outpatient (CLI) | payer MEDICARE ==
--- NOTE | 2022-11-11 21:28 | MR ---
EXAMINATION TYPE: MR shoulder RT wo con DATE OF EXAM: 11/05/2022 COMPARISON: Radiograph 10/30/2022 HISTORY: 72-year-old male M25.511, right shoulder pain TECHNIQUE: Multiplanar, multisequence imaging of the right shoulder is performed without contrast. FINDINGS: There is intrasubstance change within the intracapsular portion of the long head biceps tendon. The t endon appears grossly intact and remains a peripherally situated along the bicipital groove. There is mild tenosynovial fluid. Heterogeneity and thinning of the subscapularis tendon which appears grossly intact. Additional heterogeneity and diffuse thinning of the supraspinatus and infraspinatus tendons. Scatter ed areas of intrasubstance change are present throughout. No discrete tear is identified. There is isolated mild atrophy of the teres minor muscle belly. Howev er, no atrophy of the remaining rotator cuff musculature. There is moderate degenerative change at the acromioclavicular joint. Some anterior spurring from the acromion is noted. No significant mass effect onto the underlying myotendinous junction of the supra spinatus. There is end-stage degenerative change of the glenohumeral joint with mdiu-cm-akfn articulation, bulk y inferior spurring, and flattening of the humeral head articular surface from bony remodeling. Bony remodeling also results in mild thinning of the glenoid bone stock. Remodeling results in 18 deg ana of glenoid retroversion. Reactive degenerative subchondral marrow signal changes present on both sides of the joint. Diffusely degenerative glenoid labrum. Tiny scattered loose bodies are present within the joint. Ther e is a moderate joint effusion, likely reactive to the arthritis. No Hill-Sachs deformity or os acromiale. Patchy red marrow hyperplasia may be seen with anemia, obesi ty, smoking, or chronic disease. IMPRESSION: 1. End-stage fzgl-hk-opqc glenohumeral joint OA. Remodeling results in flattening of the articular beard rface of the humeral head. Remodeling also results in mild loss of glenoid bone stock and 18 degrees of glenoid retroversion. 2. Diffuse rotator cuff tendinosis. No high-grade partial or full-thickness rotator cuff tear is seen . 3. Isolated mild fatty infiltration of the teres minor muscle may be idiopathic change. It may also b e seen in the setting of quadrilateral space syndrome. 4. Long head biceps tendinosis and mild tenosynovitis. 5. Moderate AC joint OA. Some anterior acromion spurring is noted.
== END | disposition home or self-care (01) ==
LOC: RADMRIMAIN 12:59
PROVIDERS: ATTEND Orthopaedic Surgery
DX: M19.011 Primary osteoarthritis, right shoulder (principal); M67.813 Other specified disorders of tendon, right shoulder; M65.811 Other synovitis and tenosynovitis, right shoulder; M25.711 Osteophyte, right shoulder

== ENCOUNTER 2022-12-18 10:10 | Day surgery (SDC) | payer MEDICARE ==
[2022-12-14 13:29] VITALS: BMI 27.0
[2022-12-18] MEDS ORDERED: LACTATED RINGERS 1,000 ML IV SCH (10:28)
[2022-12-18] MEDS ORDERED: LACTATED RINGERS 1,000 ML IV ONE (10:28)
[2022-12-18 10:35] VITALS: TEMP 97
[2022-12-18] MEDS ORDERED: PROPOFOL 10 MG/ML 20 ML VIAL IV ONE (11:10)
--- NOTE | 2022-12-18 11:24 | P.PCN ---
Date of Procedure: 12/18/22 Procedure(s) Performed: BRIEF HISTORY: Patient is a 72-year-old pleasant white male scheduled for an elective colonoscopy as a part of evaluation of prior history of colon polyps. Last colonoscopy was 5 years ago. PROCEDURE PERFORMED: Colonoscopy. PREOPERATIVE DIAGNOSIS: History of colon polyps. IV sedation per Anesthesia. PROCEDURE: After informed consent was obtained, the patient, was brought into the endoscopy unit. IV sedation was administered by Anesthesia under continuous monitoring. Digital rectal examination was normal. Initially the Olympus CF-160 flexible video colonoscope was then inserted in the rectum, gradually advanced into the cecum without any difficulty. Careful examination was performed as the scope was gradually being withdrawn. Ileocecal valve and the appendiceal orifice were visualized and appeared normal. Prep was excellent. Mucosa of the cecum, ascending colon, transverse colon, descending colon, sigmoid colon, and rectum appeared normal. Scattered sigmoid diverticulosis. Retroflexion was performed in the rectum and no lesions were seen. The patient tolerated the procedure well. IMPRESSION: Normal-appearing colon from rectum to cecum with no evidence of colorectal neoplasia . Scattered sigmoid diverticula RECOMMENDATIONS: Findings of this examination were discussed with the patient as well as his family. He was advised to have a repeat screening colonoscopy at age 79..
[2022-12-18 11:48] VITALS: BP 125/79; PULSE 52; RESP 16
== END 2022-12-18 12:10 | disposition home or self-care (01) ==
LOC: ORWHC2ENDO 10:10
PROVIDERS: ATTEND Internal Medicine Gastroenterology
DX: Z12.11 Encounter for screening for malignant neoplasm of colon (principal); K57.30 Diverticulosis of large intestine without perforation or abscess without bleeding; Z86.010 Personal history of colon polyps; K21.9 Gastro-esophageal reflux disease without esophagitis; Z88.2 Allergy status to sulfonamides; Z79.1 Long term (current) use of non-steroidal anti-inflammatories (NSAID); Z79.899 Other long term (current) drug therapy
CPT/HCPCS: 45378; J2704

== ENCOUNTER → 2023-01-28 | Outpatient (CLI) | payer MEDICARE ==
--- NOTE | 2023-01-28 20:50 | CT ---
EXAMINATION TYPE: CT shoulder RT wo con CT DLP: 347.3 mGycm, Automated exposure control for dose reduction was used. DATE OF EXAM: 01/28/2023 4:43 PM COMPARISON: Extremity radiograph 01/23/2023 CLINICAL INDICATION:Male, 72 years old with history of M19.011 PRIMARY OSTEOARTHRITIS, RIGHT SHOULDER ; PHH, Right shoulder osteoarthritis, limited range of motion, chronic pain TECHNIQUE: Axial images were obtained of the CT shoulder RT wo con, Additional coronal and sagittal r eformatted images and soft tissue and bone window were obtained for review. 3-D reconstruction was cr eated on a separate workstation. Contrast used: mL of , (None if empty) Oral contrast used: (None if empty) FINDINGS: Degeneration changes of the common clavicular joint as well as the glenohumeral joint with osteophyte formation. There is ectq-jv-xptp articulation of the glenohumeral joint with subchondral c ystic change. There is minimal subchondral cystic change of the glenoid. Muscle volume appears intact . The remaining portions of the osseous structures demonstrate degeneration changes of the spine. Vis ualized lungs are unremarkable. No evidence for acute fracture. IMPRESSION: Severe right glenohumeral joint osteoarthrosis with areas of nijb-bs-igne articulation.
== END | disposition home or self-care (01) ==
LOC: RADCTMAIN 16:10
PROVIDERS: ATTEND Orthopaedic Surgery
DX: M19.011 Primary osteoarthritis, right shoulder (principal)

== ENCOUNTER → 2023-03-13 | Outpatient (CLI) | payer MEDICARE | END | disposition home or self-care (01) | LOC: LABPAT 11:16 | PROVIDERS: ATTEND Orthopaedic Surgery | DX: Z01.812 Encounter for preprocedural laboratory examination (principal); M19.011 Primary osteoarthritis, right shoulder; Z22.322 Carrier or suspected carrier of Methicillin resistant Staphylococcus aureus | CPT/HCPCS: 87070 ==

== ENCOUNTER → 2023-04-19 | Outpatient (CLI) | payer MEDICARE ==
[2023-04-19 20:23] LABS: Basophils # (A) 0.05 X 10*3/uL (0.00-0.10); Basophils % (A) 0.7 %; Eosinophils # (A) 0.09 X 10*3/uL (0.04-0.35); Eosinophils % (A) 1.2 %; HGB 15.5 g/dL (13.0-17.0); Lymphocytes # (A) 1.66 X 10*3/uL (0.90-5.00); Lymphocytes % (A) 22.2 %; MCH 30.5 pg (27.0-32.0); MCHC 32.3 g/dL (32.0-37.0); MCV 94.3 FL (80.0-97.0); Monocytes # (A) 0.46 X 10*3/uL (0.20-1.00); Monocytes % (A) 6.1 %; NRBC Per 100 WBC 0 X 10*3/uL (0.00-0.01); Neutrophils % (A) 69.4 %; Platelet Count 214 X 10*3/uL (140-440); RBC 5.09 X 10*6/uL (4.40-5.60); RDW 13.3 % (11.5-14.5); WBC 7.49 X 10*3/uL (4.50-10.00)
[2023-04-19 21:10] LABS: INR 1.01 sec (0.93-1.11); Prothrombin Time 10.9 sec (9.9-11.9)
[2023-04-19 21:11] LABS: ALT 27 U/L (10-49); AST 30 U/L (14-35); Albumin 4.5 g/dL (3.8-4.9); Albumin/Globulin Ratio 1.88 Ratio (1.60-3.17); Alkaline Phosphatase 72 U/L (41-126); BUN/Creat Ratio 10.88 Ratio (12.00-20.00); Blood Urea Nitrogen 17.4 mg/dL (9.0-27.0); Calcium 9.5 mg/dL (8.7-10.3); Chloride 104 mmol/L (96-109); Chol/HDL Ratio 2.81 Ratio; Globulin 2.4 g/dL (1.6-3.3); Glucose 84 mg/dL (70-110); LDL Cholesterol,Calculated 74.9 mg/dL (0.0-131.0); Potassium 4.6 mmol/L (3.5-5.5); Sodium 140 mmol/L (135-145); Total Bilirubin 0.7 mg/dL (0.3-1.2); Total Protein 6.9 g/dL (6.2-8.2); VLDL Calculation 15.92 mg/dL (5.00-40.00)
[2023-04-19 21:43] LABS: PSA Annual Screen 0.756 ng/mL (0.000-4.000)
== END | disposition home or self-care (01) ==
LOC: LABWHC1 13:41
PROVIDERS: ATTEND Internal Medicine
DX: Z01.818 Encounter for other preprocedural examination (principal); Z11.59 Encounter for screening for other viral diseases; Z12.5 Encounter for screening for malignant neoplasm of prostate
CPT/HCPCS: 86803; 80061; 80053; 84443; 85025; 85610; 36415; G0103

== ENCOUNTER → 2023-05-23 | Outpatient (CLI) | payer MEDICARE ==
--- NOTE | 2023-06-13 08:51 | US ---
EXAMINATION TYPE: US kidneys/renal and bladder DATE OF EXAM: 05/23/2023 COMPARISON: 04/22/2022 - US Gallbladder CLINICAL INDICATION: Male, 72 years old with history of N28.9 DISORDER OF KIDNEY AND URETER, UNSPECIF IED; Change in lab values EXAM MEASUREMENTS: Right Kidney: 10.2 x 5.3 x 4.8 cm Left Kidney: 11.0 x 6.1 x 5.2 cm Post Void Residual Volume: NA mL Right Kidney: wnl Left Kidney: Subcentimeter cyst noted, prominent renal pelvis Bladder: WNL Bilateral Jets seen: Yes Normal Post Void Residual: NA There is no evidence for hydronephrosis at this point in time. No nephrolithiasis is seen. No martha s are identified. The urinary bladder is anechoic. Bilateral ureteral jets are seen. IMPRESSION: 1. No evidence for obstructive uropathy or calculus. 2. Left renal probable cyst.
== END | disposition home or self-care (01) ==
LOC: RADUSWWP 12:17
PROVIDERS: ATTEND Internal Medicine
DX: N28.9 Disorder of kidney and ureter, unspecified (principal)
CPT/HCPCS: 76770

== ENCOUNTER 2023-07-02 05:39 | Day surgery (SDC) | payer MEDICARE ==
[2023-05-22 15:50] VITALS: BMI 27.3
--- NOTE | 2023-05-27 08:42 | P.HPOR ---
History of Present Illness H&P Date: 05/27/23 Chief Complaint: Right shoulder pain The patient is a 72-year-old xlquj-wkpn-fntemzgg retired male who presents with progressive right shoulder pain for the past several years worsening over the past 6 months. He's having pain with any attempted overhead use. He notes nigh t symptoms. He tried medications and injections without much relief. He notes daily pain that limits him. Review of Systems Per HPI Past Medical History Past Medical History: Osteoarthritis (OA) Additional Past Medical History / Comment(s): right shoulder History of Any Multi-Drug Resistant Organisms: None Reported Past Surgical History: Adenoidectomy, Cholecystectomy, Orthopedic Surgery, Tonsillectomy Additional Past Surgical History / Comment(s): left knee surgeries replacement, colonoscopy polyps, Past Anesthesia/Blood Transfusion Reactions: No Reported Reaction Additional Past Anesthesia/Blood Transfusion Reaction / Comment(s): No blood transfusion Smoking Status: Never smoker - Past Family History Father Family Medical History: Cancer Sister(s) Additional Family Medical History / Comment(s): systemic lupus Medications and Allergies Home Medications Medication Instructions Recorded Confirmed Type No Known Home Medications 05/22/23 05/22/23 History Allergies Allergy/AdvReac Type Severity Reaction Status Date / Time Sulfa (Sulfonamide Allergy Rash/Hives Verified 05/22/23 15:25 Antibiotics) Physical Examination - Shoulder right Appearance: effusion Effusion grade: grade 1 Tenderness with palpation: anterior, bicipital groove Pain: with abduction, with forward flexion ROM: forward flexion: 100 degrees ROM: internal rotation: lower lumbar ROM: external rotation: 30 degrees Crepitus with motion: Yes Strength: abduction: 5/5 Strength: forward flexion: 5/5 Strength: external rotation: 5/5 Tests: internal impingement tests: positive, external impingment tests: positive Results Patient is a well-developed well-nourished male approximately 5 foot 8, 175 pounds of mesomorphic habitus. HEENT exam is nonfocal, neck is supple. He's tender about the right anterior subacromial space and glenohumeral joint. He has moderate crepitus. Durbin, Neer sign, and speed tests are positive. His distal neurovascular exam appears intact in the right upper extremity. - Diagnostic results Shoulder x-ray: image reviewed (Views of right shoulder pain obtained in the office shows severe glenohumeral joint osteoarthrosis with fsvf-ev-xprh changes and subchondral sclerosis.) Shoulder MRI: image reviewed (MRI of the right shoulder shows severe glenohumeral joint osteoarthrosis with maintained/intact rotator cuff.) Assessment and Plan Assessment: Severe right glenohumeral joint osteoarthrosis Plan: I talked to the patient at length regarding his condition along with treatment options. At this point is quite limited because of pain and stiffness in the right shoulder related to his osteoarthrosis despite previous conservative measures. After a thorough discussion he opts to proceed with surgery. We will plan to proceed with right total shoulder arthroplasty. We will likely keep the patient for 23 hour hold postoperatively. Risks and benefits were discussed at length in layman's terms.
--- NOTE | 2023-07-01 08:56 | P.HPOR ---
History of Present Illness H&P Date: 07/01/23 Chief Complaint: Right shoulder pain The patient is a 73-year-old nzphy-jdbl-jlbjfabk retired gentleman presents with right shoulder pain for several years worsening over the past 12 months. He's having pain with overhead use and at night. He had previous multiple injections along with medications without much relief. He notes daily pain that limits him significantly. Review of Systems As per HPI Past Medical History Past Medical History: Osteoarthritis (OA) Additional Past Medical History / Comment(s): Renal insufficiency/avoid NSaids, right shoulder arthritis History of Any Multi-Drug Resistant Organisms: None Reported Past Surgical History: Adenoidectomy, Cholecystectomy, Orthopedic Surgery, Tonsillectomy Additional Past Surgical History / Comment(s): left knee surgeries replacement, colonoscopy polyps, Past Anesthesia/Blood Transfusion Reactions: No Reported Reaction Additional Past Anesthesia/Blood Transfusion Reaction / Comment(s): No blood transfusion Smoking Status: Never smoker - Past Family History Father Family Medical History: Cancer Sister(s) Additional Family Medical History / Comment(s): systemic lupus Medications and Allergies Home Medications Medication Instructions Recorded Confirmed Type No Known Home Medications 05/22/23 06/24/23 History Allergies Allergy/AdvReac Type Severity Reaction Status Date / Time Sulfa (Sulfonamide Allergy Rash/Hives Verified 06/24/23 09:58 Antibiotics) Physical Examination - Shoulder right Appearance: effusion Tenderness with palpation: anterior, bicipital groove Pain: with abduction, with forward flexion ROM: forward flexion: 100 degrees ROM: internal rotation: lower lumbar ROM: external rotation: 30 degrees Crepitus with motion: Yes Strength: abduction: 5/5 Strength: external rotation: 5/5 Tests: internal impingement tests: positive, external impingment tests: positive Results Trevin cook is a well-developed well-nourished male approximately 5 foot 8, 175 pounds of mesomorphic habitus. HEENT exam is nonfocal, neck supple. He is tender about anterior glenohumeral joint of the right shoulder. He has moderate subacromial crepitus. He has painful passive and active range of motion. Impingement test, Neer test, and speed tests are positive. His distal neurovascular appears intact in the right upper extremity. - Diagnostic results Shoulder x-ray: image reviewed (3 views of the right shoulder obtained in the office show severe osteoarthrosis with louy-iy-wfrq changes and subchondral scl erosis.) Assessment and Plan Assessment: Right severe glenohumeral joint osteoarthrosis Plan: I talked to the patient at length regarding his condition along with treatment options. He is quite limited because of pain related to his right shoulder osteoarthrosis despite previous conservative measures. After a thorough discussion he opts to proceed with surgery. We'll proceed with right total shoulder arthroplasty. Risks and benefits were discussed at length in layman's terms. We will likely keep the patient for 24 hour hold postoperatively.
[~2023-07-02 05:39] MED LIST changes: -DEXAMETHASONE SOD PHOSPHATE 4 MG/ML 1 ML VIAL IVP ONE; -HYDROmorphone 0.5 MG/0.5 ML SYRINGE IVP ONE; -HYDROmorphone 0.5 MG/0.5 ML SYRINGE SQ ONE; -KETOROLAC 15 MG/ML 1 ML VIAL IVP ONE; -LACTATED RINGERS 1,000 ML IV SCH; -LIDOCAINE 1% (10MG/ML) FOR IV START INTRADERMA PRN; +MELOXICAM 7.5 MG TAB PO PRN; -ONDANSETRON 4 MG/2 ML VIAL ONE; -PROPOFOL 10 MG/ML 20 ML VIAL IV ONE; -Pre Op ABX Message 1 EACH MISC MISCELLANE ONE; +TRANEXAMIC 1,000 MG/100ML-NACL 1,000 MG in SALINE 1 100ML.BAG IVPB PRN; -ceFAZolin 1,000 MG VIAL IVPB ONE
[2023-07-02] MEDS ORDERED: LIDOCAINE 1% (10MG/ML) FOR IV START INTRADERMA PRN (06:11)
[2023-07-02] MEDS: LACTATED RINGERS 1,000 ML IV SCH (06:42)
[2023-07-02] MEDS: ACETAMINOPHEN TAB 500 MG TAB PO PRN (06:55)
[2023-07-02] MEDS: MIDAZOLAM 2 MG/2 ML VIAL IVP ONE (06:55)
[2023-07-02] MEDS: DEXAMETHASONE SOD PHOSPHATE 4 MG/ML 1 ML VIAL IVP ONE (06:55)
[2023-07-02] MEDS ORDERED: HYDROmorphone 0.5 MG/0.5 ML SYRINGE IVP PRN ×2 (07:00→09:38)
--- NOTE | 2023-07-02 07:09 | P.ANPRN ---
Procedure Note - Anesthesia - Nerve Block Performed Right Interscalene Single Time Out Performed: Yes Date of Procedure: 07/02/23 Procedure Start Time: 06:54 Procedure Stop Time: 07:01 Location of Patient: PreOp Indication: Acute Post-Operative Pain, Analgesia, Requested by Surgeon Sedation Type: Sedate with meaningful contact maintained Preparation: Sterile Prep Position: Sitting Catheter: None Needle Types: Pajunk Needle Gauge: 21 Ultrasound used to visualize needle placement: Yes Ultrasound used to observe medication spread: Yes Injectate: 0.5% Ropivacaine (see comment for volume) (Ropiv 20ml+[id number]. Nerve stimulation 0.8MA)
[2023-07-02] MEDS: ceFAZolin 1,000 MG in SODIUM CHLORIDE 0.9% 1,000 ML IRRIGATION ONE (07:35)
[2023-07-02] MEDS: LACTATED RINGERS 1,000 ML IV ONE ×4 (09:36)
[2023-07-02] MEDS ORDERED: SENNOSIDES-DOCUSATE SODIUM 1 EACH TAB PO PRN (09:38)
[2023-07-02] MEDS ORDERED: hydrOXYzine pamoate 25 MG CAP PO PRN (09:38)
[2023-07-02] MEDS ORDERED: HYDROcodone/APAP 5-325MG 1 EACH TAB PO PRN (09:38)
--- NOTE | 2023-07-02 10:03 | P.OP ---
Date of Procedure: 07/02/23 Preoperative Diagnosis: Right severe glenohumeral joint osteoarthrosis Postoperative Diagnosis: Same Procedure(s) Performed: Right total shoulder arthroplasty Implants: [employer] size 12 press-fit humeral stem/size 12 metaphysis/52 x 18 mm eccentric humeral head/48 mm cemented central pegged glenoid component. Anesthesia: marli OJEDA Surgeon: Constantino Moreno Triage Assistant #1: Kelton Mckeon Estimated Blood Loss (ml): 200 Pathology: none sent Condition: stable Disposition: PACU Indications for Procedure: The patient is a 73-year-old male presents with progressive right shoulder pain secondary to osteoarthrosis despite conservative measures. A discussion of the risks and benefits of operative intervention versus continued conservative measures was made with patient. He opted to proceed with surgery. Operative risks to include infection, neurovascular injury, development of blood clots, fracture, component loosening/failure and possible need for subsequent procedures was discussed. Informed consent was obtained. Operative Findings: As below Description of Procedure: The patient was brought to the operating room, and after induction of general anesthesia was placed in the beachchair position. The bony prominences were appropriately padded. The right upper extremity was prepped and draped in normal fashion. A deltopectoral incision was then made lateral to the coracoid process extending approximately 12 cm. The skin was incised sharply. Subcutaneous tissues were divided bluntly. Electrocautery was used for hemostasis. The deltopectoral interval was identified and the cephalic vein gently retracted laterally with the deltoid. Subdeltoid adhesions were bluntly dissected. A self-retaining retractor was placed. The clavipectoral fascia was opened and the conjoined tendon gently retracted medially. The upper one third of the pectoralis major was released to help facilitate exposure. The biceps was identified and the sheath was opened. The rotator interval was opened. The biceps was tenotomized and allowed to retract distally. The subscapularis was peeled off the lesser tuberosity and tagged.. The humeral head was then exposed releasing the capsule off the humeral neck. The shoulder was gently dislocated. A starting hole was made in the head in line with the humeral shaft. The shaft was reamed by hand up to 12 mm. There is good distal chatter. The cutting guide was placed planning on a cut flush with the rotator cuff insertion and 30 of retroversion. The cutting block was pinned in place. The humeral head cut was then made. This measured most appropriately at 52 x 18 mm. Residual inferior osteophytes were carefully removed flush with the [place] cortical bone. A posterior glenoid retractor was placed. The glenoid was then exposed releasing the labrum from the 12-6 o'clock position. Residual labral tissue was removed. The glenoid sized most appropriate [] mm. A guidewire was then inserted planning on the appropriate version. The glenoid was reamed down to a bleeding bony surface. The central peg hole was drilled. The alignment guide was placed in the peripheral peg holes drilled. The trial size 48 mm glenoid was placed and was fully seated. There was good anterior to posterior and inferior to superior fit. The trial component was removed. Pulsatile lavage was utilized. The bony surface was dried. The peripheral peg holes were then pressurized with cement utilizing a syringe. Excess cement was removed. A central peg glenoid was then placed and was fully seated. This was gently impacted. This was held in place until the cement had sufficiently hardened. Attention was then paid again towards preparing the proximal humerus. The appropriate broach was placed in 30 of retroversion and was fully seated. An eccentric 52 x 18 mm humeral head was placed. The shoulder was gently reduced. It was taken through a range of motion. It was felt to be stable in flexion and extension with internal and external rotation. I felt there was adequate scientologist of soft tissue tension. The shoulder was gently dislocated. The trial components were then removed. A #2 Ethibond was placed laterally for reattachment of the lesser tuberosity. The humeral stem was inserted in 30 of retroversion and was fully seated. There was good rotational stability. The eccentric 52 x 18 mm humeral head was gently impacted. The shoulder was then gently reduced and taken through range of motion and was felt to be stable. Pulsatile lavage was utilized. The subscapularis was reattached utilizing #2 Ethibond suture. The rotator interval was closed with #2 Ethibond suture. She had minimal drainage at this point therefore a deep drain was not placed. The deltopectoral interval was closed with interrupted 2-0 Vicryl sutures. The subcu tissues were reapproximated with interrupted 2-0 Vicryl sutures. The skin was reprepped with 3-0 subcuticular Prolene suture. Steri-Strips were applied. A sterile dressing was applied in addition to a sling. The patient was then awoken from general anesthesia and transferred to recovery room in good condition. Blood loss was estimated at [] mL. No complications were incurred. Sponge and needle counts were correct at the end the case. Kelton CHAVEZ assisted during the major components of the case to include positioning, exposure, dissection, implantation, and closure.
--- NOTE | 2023-07-02 10:53 | XR ---
EXAMINATION TYPE: XR shoulder limited RT DATE OF EXAM: 07/02/2023 10:24 AM CLINICAL INDICATION:Male, 73 years old with history of s/p right total shoulder arthroplasty; [facility] COMPARISON: X-rays 01/23/[address] 01/28/2023 TECHNIQUE AND FINDINGS: Single frontal view of the right shoulder. A total shoulder arthroplasty is in place. Metallic lilia l head stemmed prosthesis is present, and there is a radiolucent polyethylene glenoid component as ev idenced by a radiopaque peg marker now seen over the glenoid. Alignment appears satisfactory on this view. No abnormal perihardware lucency or fracture. Acromioclavicular joint is maintained, with mild degenerative changes. Soft tissues show no unexpected radiopaque foreign body. Some regional soft tis tonya gas is present, not unexpected postoperative. IMPRESSION: Status post placement of right total shoulder arthroplasty. No evidence of complication.
[2023-07-02] MEDS: ONDANSETRON 4 MG/2 ML VIAL IVP ONE (14:15)
[2023-07-02] MEDS: droPERidol 5 MG/2 ML VIAL IVP ONE (14:15)
[2023-07-02 15:59] LABS: Basophils % (A) 0 %; Eosinophils % (A) 0 %; HCT 42.5 % (39.0-53.0); HGB 13.5 gm/dL (13.0-17.5); Lymphocytes # (A) 0.4 k/uL (1.0-4.8); Lymphocytes % (A) 3 %; MCH 30.6 pg (25.0-35.0); MCHC 31.8 g/dL (31.0-37.0); Mean Platelet Volume 7.9; Monocytes # (A) 0.5 k/uL (0-1.0); Monocytes % (A) 4 %; Neutrophils # (A) 12.8 k/uL (1.3-7.7); Neutrophils % (A) 93 %; Platelet Count 158 k/uL (150-450); RBC 4.42 m/uL (4.30-5.90); RDW 14.2 % (11.5-15.5); WBC 13.8 k/uL (3.8-10.6)
--- NOTE | 2023-07-02 18:15 | P.CONS ---
History of Present Illness - Reason for Consult Consult date: 07/02/23 Medical Management Requesting physician: Constantino Moreno - History of Present Illness History of Presenting Illness: Patient is a 73-year-old male with a past medical history of osteoarthritis. He is currently admitted under orthopedic surgery team and underwent right total shoulder arthroplasty secondary to severe glenohumeral joint osteoarthrosis. Surgical procedure was completed by Dr. Moreno. We have been consulted for medical management throughout hospitalization. Patient seen and fully evaluated upon return to room 475. He currently reports doing well. Continues to have numbness and tingling from nerve block, but states pain is mild to moderate and controlled at this time. He denies experiencing any postoperative nausea or vomiting. He denies any other com plaints including headache, lightheadedness, dizziness, chest pain, palpitations, or shortness of breath. Review of systems: Pertinent positives and negatives as discussed in HPI, a complete review of systems was performed and all other systems are negative. Physical exam: Vital signs reviewed and stable. General: Nontoxic, no distress and appears stated age. Derm: Skin warm and dry, normal coloration for ethnicity. Head: Atraumatic, normocephalic and symmetric. Eyes: EOMs intact, no lid lag, and anicteric sclera Mouth: no lip lesions, mucus membranes moist Cardiovascular: regular rate and rhythm with normal S1S2, no murmur, positive posterior tibial pulses bilaterally, and cap refill < 2 seconds. Lungs: Respirations even, regular, and unlabored on room air. Lungs CTA bilaterally, no rhonchi, no rales, no wheezing, and no accessory muscle usage. Abdominal: soft, nontender to palpation, no guarding, no appreciable organomegaly Ext: No gross muscle atrophy, no edema, no contractures. Post operative dressing in place to right shoulder, right arm in sling. Movement intact to right fingers sensation reported to be slightly decreased. Cap refill less than 2 seconds. Neuro: Speech clear, face symmetrical and CN II-XII grossly intact with no noted focal neuro deficits Psych: Alert and oriented to person, place, time, and situation. Appropriate and pleasant affect. Assessment and Plan of Care: Osteoarthritis Status post right total shoulder arthroplasty Management per primary admitting orthopedic surgery team including DVT prophylaxis, pain management, wound/dressing management, weightbearing and advancement of activity for right arm. DVT prophylaxis currently with aspirin 325 daily. Vital signs reviewed and stable. Blood pressure 114/74, heart rate 73, re spiratory rate 17, temp 97.6 F, and SpO2 of 96% on room air. Orders placed for postoperative labs including CBC, BMP, and magnesium. Will follow-up on these results and place additional orders if indicated based upon these findings. Thank you for allowing us to participate in the care of this pleasant patient. Do not hesitate to contact us with questions. Someone can be reached from the [facility] hospitalist group all hours of the day at [phone] or via [employer]. Patient was seen independently by Nurse Practitioner. This document was prepared using [employer] dictation software. Please allow for errors in cellar pumper while rare they do occur. Past Medical History Past Medical History: Osteoarthritis (OA) Additional Past Medical History / Comment(s): right shoulder arthritis History of Any Multi-Drug Resistant Organisms: None Reported Past Surgical History: Adenoidectomy, Cholecystectomy, Orthopedic Surgery, Tonsillectomy Additional Past Surgical History / Comment(s): left knee surgeries replacement, colonoscopy polyps, Past Anesthesia/Blood Transfusion Reactions: No Reported Reaction Additional Past Anesthesia/Blood Transfusion Reaction / Comm: No blood transf usion Past Psychological History: No Psychological Hx Reported Additional Psychological History / Comment(s): Lives with spouse, no device. Smoking Status: Never smoker Past Alcohol Use History: Occasional Past Drug Use History: None Reported - Past Family History Father Family Medical History: Cancer Sister(s) Additional Family Medical History / Comment(s): systemic lupus Medications and Allergies Home Medications Medication Instructions Recorded Confirmed Type No Known Home Medications 05/22/23 07/02/23 History Allergies Allergy/AdvReac Type Severity Reaction Status Date / Time Sulfa (Sulfonamide Allergy Rash/Hives Verified 07/02/23 06:44 Antibiotics) Physical Exam Vitals: Vital Signs Temp Pulse Pulse Resp BP Pulse Ox 07/02/23 14:48 97.6 F 73 17 114/74 96 07/02/23 13:11 97.6 F 67 17 111/64 98 07/02/23 13:00 62 12 114/59 93 L 07/02/23 12:52 97.6 F 67 17 111/64 98 07/02/23 12:30 65 16 110/58 96 07/02/23 12:00 65 12 111/55 93 L 07/02/23 11:30 61 12 116/55 93 L 07/02/23 11:00 62 12 111/58 93 L 07/02/23 10:45 61 12 111/59 93 L 07/02/23 10:30 63 12 117/58 93 L 07/02/23 10:15 62 12 122/56 97 07/02/23 10:00 97 F L 81 12 116/57 95 07/02/23 07:10 51 L 16 123/60 97 07/02/23 06:39 97.8 F 53 L 16 140/65 97 Intake and Output 07/02/23 07/02/23 07/02/23 06:59 14:59 22:59 Intake Total 200 1051 300 Output Total 200 Balance 200 851 300 Intake: IV 200 1051 Oral 300 Output: Estimated Blood Loss 200 Other: # Voids 1 Weight 83 kg 83 kg Results CBC & Chem 7: 07/02/23 15:41 Labs: Abnormal Lab Results - Last 24 Hours (Table) 07/02/23 Range/Units 15:41 WBC 13.8 H (3.8-10.6) k/uL Neutrophils # 12.8 H (1.3-7.7) k/uL Lymphocytes # 0.4 L (1.0-4.8) k/uL
[2023-07-02] MEDS: HYDROcodone/APAP 5-325MG 1 EACH TAB PO PRN (22:30)
[2023-07-03 08:25] VITALS: BP 106/61; PULSE 60; RESP 16; TEMP 97.8
--- NOTE | 2023-07-03 08:49 | P.DS ---
Providers Date of admission: 07/02/2023 Expected date of discharge: 07/03/23 Attending physician: Constantino Moreno Consults: 07/02/23 09:38 Consult Physician Routine Consulting Provider: Brandy Mejía Consult Reason/Comments: medical management s/p right total shoulder arthroplasty Do you want consulting provider notified?: Yes Primary care physician: Alton Nicholson Hospital Course: Date of admission: 07/02/2023 Date of discharge: 07/03/2023 Admission diagnosis: Right glenohumeral joint osteoarthrosis Discharge diagnosis: Same Attending physician: Dr. Moreno Surgical procedures: Right total shoulder arthroplasty Brief history: Patient is a 73-year-old male with a history of progressive primary right glenohumeral joint osteoarthrosis. At this point patient has failed conservative treatment measures and has opted to proceed with a elective right total shoulder arthroplasty. Hospital course: Details of patient's surgery can be found in operative report. Patient tolerated the procedure well and was subsequently transported to orthopedic floor. Patient's orthopeidc and medical care was provided daily. Patient had daily laboratory tests performed for evaluation of overall blood counts. Patient had daily physical therapy to include strengthening range of motion as well as education with walker ambulation. Patient was treated with aspirin for their postoperative DVT prophylaxis during their inpatient stay. Patient was noted to have a relatively uneventful postoperative course. Patient reported satisfactory pain control with oral pain medications by postoperative day 1. Patient showed satisfactory progress with physical therapy. Patient moved steadily through the program and had no difficulty meeting the goals by postoperative day 1. Given patient's otherwise satisfactory course and having met physical therapy goals, plan is to discharge patient home on postoperative day 1. Discharge condition/disposition: Patient will be discharged home in stable condition. Discharge medications: Instructions are given on resumption of patient's normal daily medications per primary care recommendation, in addition patient will be prescribed [place]; senna; aspirin 325 mg daily 30 days. Orthopedic Discharge Instructions: 1. Wound care and infection precautions, keep incision dry and covered while showering, no lotions, creams, moisturizers. No soaking, pools, hot tubs. Do not scrub over incision. 2. Non-weight bearing right upper extremity. 3. Ice when necessary. Do not exceed 20 minutes per hour with ice pack. 4. Utilize sling to right upper extremity until seen at first follow up appointment. 5. Pain meds and anticoagulants per prescription. 6. Pain medication has potential to cause constipation. Increase oral fluid and fiber intake. Contact primary care provider if you have not had a bowel movement within 48 hours after discharge. 7. No anti-inflammatory medication until discussed at first post operative visit, this including Motrin, Aleve, Mobic, Diclofenac. 8. Follow up in office at 2 weeks postop with Donis Olivares PA-C / Kelton Mckeon PA-C 9. Follow up with your primary care doctor 7-10 days after discharge. 10. Contact [facility] with any questions, . Keep incision clean, dry, intact. While showering, cover steri strips/incision with Saran wrap. Keep steri strips on until follow-up appointment in office at 2 weeks. Assessment: Right severe glenohumeral joint osteoarthrosis Procedures: Right total shoulder arthroplasty Patient Condition at Discharge: Good Plan - Discharge Summary Discharge Rx Participant: Yes New Discharge Prescriptions: No Action No Known Home Medications Discharge Medication List No Known Home Medications 05/22/23 [History] Follow up Appointment(s)/Referral(s): Kelton Mckeon PAC [PHYSICIAN LEGAL ARCHIVIST] - 2 Weeks Patient Instructions/Handouts: Shoulder Arthroplasty (DC), Shoulder Arthroplasty (GEN) Activity/Diet/Wound Care/Special Instructions: Orthopedic Discharge Instructions: 1. Wound care and infection precautions, keep incision dry and covered while showering, no lotions, creams, moisturizers. No soaking, pools, hot tubs. Do not scrub over incision. 2. Non-weight bearing right upper extremity. 3. Ice when necessary. Do not exceed 20 minutes per hour with ice pack. 4. Utilize sling to right upper extremity until seen at first follow up appointment. 5. Pain meds and anticoagulants per prescription. 6. Pain medication has potential to cause constipation. Increase oral fluid and fiber intake. Contact primary care provider if you have not had a bowel movement within 48 hours after discharge. 7. No anti-inflammatory medication until discussed at first post operative visit, this including Motrin, Aleve, Mobic, Diclofenac. 8. Follow up in office at 2 weeks postop with Donis Olivares PA-C / Kelton Mckeon PA-C 9. Follow up with your primary care doctor 7-10 days after discharge. 10. Contact [facility] with any questions, . Keep incision clean, dry, intact. While showering, cover steri strips/incision with Saran wrap. Keep steri strips on until follow-up appointment in office at 2 weeks. Discharge Disposition: HOME SELF-CARE
[2023-07-03] MEDS: ASPIRIN 325 MG TAB PO SCH (09:07)
[2023-07-03 09:13] LABS: HCT 41.6 % (39.0-53.0); HGB 13.2 gm/dL (13.0-17.5); MCH 30.7 pg (25.0-35.0); MCHC 31.7 g/dL (31.0-37.0); MCV 96.9 fL (80.0-100.0); Mean Platelet Volume 8.2; Platelet Count 174 k/uL (150-450); RBC 4.29 m/uL (4.30-5.90); RDW 14.2 % (11.5-15.5)
[2023-07-03 09:19] LABS: African American GFR (CKD) 69 (>60 ml/min/1.73 sqM); Anion Gap 8 mmol/L; Blood Urea Nitrogen 20 mg/dL (9-20); Calcium 8.4 mg/dL (8.4-10.2); Carbon Dioxide 22 mmol/L (22-30); Chloride 109 mmol/L (98-107); Glucose 125 mg/dL (74-99); Magnesium 2.1 mg/dL (1.6-2.3); Non-African American GFR(CKD) 60 (>60 ml/min/1.73 sqM); Potassium 4.2 mmol/L (3.5-5.1); Sodium 139 mmol/L (137-145)
--- NOTE | 2023-07-03 10:28 | P.PN ---
Subjective Progress Note Date: 07/03/23 Hospital course: Patient is a 73-year-old male with a past medical history of osteoarthritis. He is currently admitted under orthopedic surgery team and underwent right total shoulder arthroplasty secondary to severe glenohumeral joint osteoarthrosis. Surgical procedure was completed by Dr. Moreno. We were consulted for medical management throughout hospitalization. Physical exam: Patient seen and fully evaluated at bedside this morning. Patient currently reporting uncontrolled postoperative pain and being medicated by additional medication from RN. Patient denies having any numbness/tingling. Movement and sensation of right hand remains intact. Patient with ice to right shoulder at this time. He denies having any chest pain, palpitations, or shortness of breath. Vital signs reviewed and stable. General: Nontoxic, no distress and appears stated age. Derm: Skin warm and dry, normal coloration for ethnicity. Head: Atraumatic, normocephalic and symmetric. Eyes: EOMs intact, no lid lag, and anicteric sclera Mouth: no lip lesions, mucus membranes moist Cardiovascular: regular rate and rhythm with normal S1S2, no murmur, positive posterior tibial pulses bilaterally, and cap refill < 2 seconds. Lungs: Respirations even, regular, and unlabored on room air. Lungs CTA bilaterally, no rhonchi, no rales, no wheezing, and no accessory muscle usage. Abdominal: soft, nontender to palpation, no guarding, no appreciable organomegaly Ext: No gross muscle atrophy, no edema, no contractures. Post operative dressing in place to right shoulder, right arm in sling. Movement intact to right fingers sensation reported to be slightly decreased. Cap refill less than 2 seconds. Neuro: Speech clear, face symmetrical and CN II-XII grossly intact with no noted focal neuro deficits Psych: Alert and oriented to person, place, time, and situation. Appropriate and pleasant affect. Assessment and Plan of Care: Postoperative pain Patient reporting significant postoperative pain at this time. Discussed with RN medicating patient at this time. Patient educated on the importance of ice packs over the next 24 to 48 hours to prevent further swelling. Leukocytosis CBC showing slight elevation of WBC count at 14.0. Leukocytosis is a reactive and expected finding of surgical procedure. No signs of infection. No need for further intervention at this time. Osteoarthritis Status post right total shoulder arthroplasty Management per primary admitting orthopedic surgery team including DVT prophylaxis, pain management, wound/dressing management, weightbearing and advancement of activity for right arm. DVT prophylaxis currently with aspirin 325 daily. Data reviewed: Vital signs reviewed and stable. Blood pressure 106/61, heart rate 60, respiratory rate 16, temp 97.8 F, and SpO2 of 97% on room air. Postoperative labs reviewed showing mild postoperative leukocytosis with WBC count of 14.0 otherwise normal findings with hemoglobin of 13.2 and platelet count of 174. BMP unremarkable with exception of mild hyperchloremia with chloride of 109 otherwise normal findings. Blood glucose 125. Magnesium 2.1. Patient is cleared from medical perspective once cleared by primary admitting orthopedic surgery team. Thank you for allowing us to participate in the care of this pleasant patient. Do not hesitate to contact us with questions. Someone can be reached from the [facility] hospitalist group all hours of the day at [phone] or via [employer]. Patient was seen independently by Nurse Practitioner. This document was prepared using [employer] dictation software. Please allow for er rors in custom leather products maker while rare they do occur. Objective - Vital Signs Vital signs: Vital Signs Temp 97.8 F 07/03/23 07:15 Pulse 60 07/03/23 07:15 Resp 16 07/03/23 07:15 BP 106/61 07/03/23 07:15 Pulse Ox 97 07/03/23 07:15 FiO2 Intake & Output 07/02/23 07/03/23 07/03/23 18:59 06:59 18:59 Intake Total 1351 240 Output Total 200 Balance 1151 240 Weight 83 kg Intake: IV 1051 Oral 300 240 Output: Estimated Blood Loss 200 Other: Voiding Method Toilet # Voids 1 2 - Labs CBC & Chem 7: 07/03/23 08:10 07/03/23 08:10 Labs: Abnormal Lab Results - Last 24 Hours (Table) 07/02/23 Range/Units 15:41 WBC 13.8 H (3.8-10.6) k/uL Neutrophils # 12.8 H (1.3-7.7) k/uL Lymphocytes # 0.4 L (1.0-4.8) k/uL
[2023-07-03] MEDS: HYDROmorphone 0.5 MG/0.5 ML SYRINGE IVP PRN (10:39)
--- NOTE | 2023-07-03 11:54 | P.PN ---
Subjective Progress Note Date: 07/03/23 Principal diagnosis: Right severe glenohumeral joint osteoarthrosis Patient was seen at bedside this morning lying semirecumbent position was sitting to right upper extremity and bulky dressing present over right shoulder. Patient says he has urinated several times since surgery yesterday and has been up walking around the room. Patient is eager to go home later today. Patient says he rates the pain as 3 or 4/10. Patient says medication does help control the pain. Patient says most of the pain he is having is in the right elbow. Patient denies chest pain, fever, shortness breath, nausea, vomiting, change in vision, loss of bowel/bladder control. Objective - Vital Signs Vital signs: Vital Signs Temp 97.8 F 07/03/23 07:15 Pulse 60 07/03/23 07:15 Resp 16 07/03/23 07:15 BP 106/61 07/03/23 07:15 Pulse Ox 97 07/03/23 07:15 FiO2 Intake & Output 07/02/23 07/03/23 07/03/23 18:59 06:59 18:59 Intake Total 1351 240 Output Total 200 Balance 1151 240 Weight 83 kg Intake: IV 1051 Oral 300 240 Output: Estimated Blood Loss 200 Other: Voiding Method Toilet # Voids 1 2 - Exam Right shoulder: Incision is clean, dry, and intact. The dressing is in good condition. There is minimal soft tissue swelling and ecchymosis surrounding the medial and lateral aspects of the incision. Calf is soft, no tenderness with palpation. Plantar flexion, dorsiflexion, EHL, FHL are intact. Sensory exam to light touch throughout the extremity is intact, dorsal pedis pulses 2+. - Labs CBC & Chem 7: 07/03/23 08:10 07/03/23 08:10 Labs: Abnormal Lab Results - Last 24 Hours (Table) 07/02/23 Range/Units 15:41 WBC 13.8 H (3.8-10.6) k/uL Neutrophils # 12.8 H (1.3-7.7) k/uL Lymphocytes # 0.4 L (1.0-4.8) k/uL Assessment and Plan Assessment: 1. Right severe glenohumeral joint osteoarthrosis - Postop day 1 status post right total shoulder arthroplasty Plan: 1. Right severe glenohumeral joint osteoarthrosis - right total shoulder arthroplasty performed yesterday, 07/02/2023. Patient is able to assess morning was then present to the right upper extremity. Patient to be nonweightbearing throughout upper extremity. Encourage to perform gentle range of motion exercises of right wrist and right elbow. Discharge home today. 2. Appreciate medical management 3. Pain management - [place]; Dilaudid only as needed 4. DVT prophylaxis - aspirin 325 mg daily 5. GI prophylaxis - senna 6. PT/OT - nonweightbearing right upper extremity. Maintain sling to right upper extremity all times. Okay to perform gentle range of motion exercises of right elbow and wrist 7. Encourage incentive spirometer use 8. Discharge planning - discharge home today Time with Patient: Less than 30
== END 2023-07-03 12:18 | disposition home or self-care (01) ==
LOC: OR 05:39 → 4SSUR 09:53 → OR 07-03 12:18
PROVIDERS: ATTEND Orthopaedic Surgery
DX: M19.011 Primary osteoarthritis, right shoulder (principal); N28.9 Disorder of kidney and ureter, unspecified; F10.90 Alcohol use, unspecified, uncomplicated; Z88.2 Allergy status to sulfonamides
CPT/HCPCS: 23472; 64415; 80048; 83735; 85025; 85027; 73020; C1713; C1776; J2250; J1100; J0690 ×2; J1170